=== PATIENT | female | born 1975 | race Caucasian/White ===

== ENCOUNTER → 2018-01-04 | Outpatient (CLI) | payer BC | LOC: LAB 11:22 → LAB SHORT 11:22 | PROVIDERS: Registered Nurse Community Health | DX: Z12.4 Encounter for screening for malignant neoplasm of cervix (principal) | CPT/HCPCS: 87624; G0123 ==

== ENCOUNTER → 2018-04-07 | Outpatient (CLI) | payer BC | LOC: LAB SHORT 07:15 → PLD 07:15 | DX: N84.1 Polyp of cervix uteri (principal) | CPT/HCPCS: 88305 ==

== ENCOUNTER → 2018-10-26 | Outpatient (CLI) | payer BC | END | disposition home or self-care (01) | LOC: LAB 15:11 → LAB SHORT 15:11 | DX: B37.9 Candidiasis, unspecified (principal) | CPT/HCPCS: 87070; 87077; 87147; 87186; 87205 ==

== ENCOUNTER → 2019-07-07 | Outpatient (CLI) | payer BC ==
[2019-07-18 07:07] LABS: CHLAMYDIA TRACHOMATIS, NAA Negative (Negative); HPV 16 Negative (Negative); HPV 18 Negative (Negative); HPV OTHER HR TYPES Positive (Negative); NEISSERIA GONORRHOEAE, NAA Negative (Negative)
== END | disposition home or self-care (01) ==
LOC: LAB SHORT 16:40 → LAB 16:40
PROVIDERS: Student in an Organized Health Care Education/Training Program
DX: Z12.4 Encounter for screening for malignant neoplasm of cervix (principal); N89.8 Other specified noninflammatory disorders of vagina
CPT/HCPCS: 87491; 87591; 87624; 87625; G0123

== ENCOUNTER → 2019-09-27 | Outpatient (CLI) | payer BC | LOC: LAB SHORT 10:38 → PLD 10:38 | DX: N84.1 Polyp of cervix uteri (principal); N72 Inflammatory disease of cervix uteri | CPT/HCPCS: 88305 ==

== ENCOUNTER → 2024-12-14 | Outpatient (CLI) | payer BC | LOC: LAB SHORT 08:03 → LAB 08:03 | DX: R87.810 Cervical high risk human papillomavirus (HPV) DNA test positive (principal) | CPT/HCPCS: 88305 ==